=== PATIENT | female | born 2000 | race Caucasian/White ===

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

== ENCOUNTER 2019-10-06 07:38 | Inpatient (IN) | payer MEDICAID, OTHER ==
[~2019-10-06] VITALS: Ht 162.6 cm; Wt 93.1 kg
[2019-10-06 08:27] LABS: BASOPHILS % (AUTO) 0.3 % (0.0-2.0); EOSINOPHILS % (AUTO) 0.8 % (1.0-6.0); HEMATOCRIT 42.6 % (36-46); HEMOGLOBIN 14.3 g/dL (12.0-16.0); LYMPHOCYTES # (AUTO) 1.6 K/uL (1.0-4.8); MEAN CORPUSCULAR HEMOGLOBIN 28.2 pg (26.0-34.0); MEAN CORPUSCULAR HGB CONC 33.6 G/dL (31.0-37.0); MEAN CORPUSCULAR VOLUME 84 fL (80-100); MONOCYTES # (AUTO) 0.5 K/uL (0.1-1.0); MONOCYTES % (AUTO) 5.8 % (2.0-9.0); NEUTROPHILS # (AUTO) 7.1 K/uL (1.8-7.7); NEUTROPHILS % (AUTO) 76.1 % (40.0-70.0); PLATELET COUNT (AUTO) 263 K/uL (150-450); RED BLOOD CELL COUNT(AUTO) 5.07 MIL/uL (4.00-5.20); RED CELL DISTRIBUTION WIDTH 13.1 % (11.5-14.5)
[2019-10-06] MEDS ORDERED: HALOPERIDOL 5 MG TABLET PO PRN (08:30)
[2019-10-06] MEDS ORDERED: LORazepam 2 MG TABLET PO PRN (08:30)
[2019-10-06 08:46] LABS: ANION GAP 9 mmol/L (8-16); CALCIUM, TOTAL 8.7 mg/dL (8.8-10.5); CARBON DIOXIDE 25 mmol/L (22-29); CHLORIDE 107 mmol/L (98-107); CREATININE 0.76 mg/dL (0.60-1.30); GLOMERULAR FILTR. RATE CALC > 60 mL/min (>60); GLUCOSE,RANDOM 89 mg/dL (70-110); POTASSIUM 3.8 mmol/L (3.5-5.1); SODIUM SERUM 141 mmol/L (136-145)
[2019-10-06 08:50] LABS: ALANINE AMINOTRANSFERASE 16 U/L (12-78); ALBUMIN 3.4 g/dL (3.4-5.0); ALKALINE PHOSPHATASE 161 U/L (46-116); ASPARTATE AMINOTRANSFERASE 20 U/L (15-37); BILIRUBIN,TOTAL 0.3 mg/dL (0.1-1.0); HCG,QUANTITATIVE < 1 mIU/mL (0-6); TOTAL PROTEIN, SERUM 7.1 g/dL (6.4-8.2)
[2019-10-06 08:58] LABS: UREA NITROGEN, BLOOD 7 mg/dL (7-18)
[2019-10-06] MEDS ORDERED: PERTUSS(ACELL),DIPH,TET VAC/PF 0.5 ML VIAL IM ONE (09:15)
[2019-10-06] MEDS ORDERED: ACETAMINOPHEN 500 MG TABLET PO ONE (09:15)
[2019-10-06] MEDS ORDERED: LORazepam 1 MG TABLET PO ONE (09:15)
[2019-10-06 10:59] LABS: APPEARANCE,URINE CLEAR (CLEAR); BILIRUBIN,URINE NEGATIVE (NEGATIVE); GLUCOSE, URINE (UA) NEGATIVE (NEGATIVE); KETONES,URINE TRACE mg/dL (NEGATIVE); LEUKOCYTE ESTERASE ,URINE NEGATIVE (NEGATIVE); NITRATE,URINE NEGATIVE (NEGATIVE); PH,URINE 6.5 (5.0-8.0); PROTEIN,URINE POS 1+ (NEGATIVE)
[2019-10-06 11:04] LABS: OCCULT BLOOD,URINE SMALL (NEGATIVE)
[2019-10-06 11:05] LABS: AMPHET/METH SCREEN,URINE POSITIVE (NEGATIVE); BACTERIA,URINE None Seen /HPF (None Seen); BARBITURATE SCREEN, URINE NEGATIVE (NEGATIVE); BENZODIAZEPINES SCREEN,URINE NEGATIVE (NEGATIVE); CANNABINOID SCREEN,URINE NEGATIVE (NEGATIVE); COCAINE SCREEN,URINE NEGATIVE (NEGATIVE); METHADONE SCREEN, URINE NEGATIVE (NEGATIVE); OPIATE SCREEN,URINE NEGATIVE (NEGATIVE); SQUAMOUS EPITHELIAL CELL,UR Few /LPF (None Seen); WBC,URINE None Seen /HPF (0-5)
[2019-10-06 11:06] LABS: PHENCYCLIDINE SCREEN,URINE NEGATIVE (NEGATIVE)
[2019-10-06 21:13] VITALS: BP 111/68
[2019-10-07 06:07] VITALS: BP 113/52
[2019-10-07 08:06] LABS: CHOL/HDL RATIO 1.9 (3.9-5.7); FREE T4 (FREE THYROXINE) 1.01 ng/dL (0.76-1.46); THYROID STIMULATING HORMONE 1.15 uIU/mL (0.36-3.74)
[2019-10-07] MEDS ORDERED: MAG HYDROX/AL HYDROX/SIMETH ES 30 ML SUSPENSION UDCUP PO PRN (08:15)
[2019-10-07] MEDS ORDERED: PETROLATUM,WHITE 28 GM JELLY TP PRN (08:15)
[2019-10-07] MEDS ORDERED: DOCUSATE SODIUM 100 MG CAPSULE PO PRN (08:15)
[2019-10-07] MEDS ORDERED: IBUPROFEN 400 MG TABLET PO PRN (08:15)
[2019-10-07] MEDS ORDERED: CloNIDine HCL 0.1 MG TABLET PO PRN (08:15)
[2019-10-07] MEDS ORDERED: ACETAMINOPHEN 325 MG TABLET PO PRN (08:15)
[2019-10-07] MEDS ORDERED: GuaiFENesin/D-METHORPHAN [SUGAR-FREE] 200-20MG/10 ML SYRUP UDCUP PO PRN (08:15)
[2019-10-07] MEDS ORDERED: MAGNESIUM HYDROXIDE SUSPENSION 30 ML UDCUP PO PRN (08:15)
[2019-10-07] MEDS ORDERED: ALBUTEROL SULFATE HFA 90 MCG/PUFF 8 GM INHALER IH PRN (08:15)
[2019-10-07] MEDS ORDERED: ONDANSETRON HCL 4 MG TABLET PO PRN (08:15)
[2019-10-07] MEDS ORDERED: LOPERAMIDE HCL 2 MG CAPSULE PO PRN (08:15)
[2019-10-07] MEDS ORDERED: NICOTINE 14 MG/24 HOUR PATCH TD PRN (08:15)
[2019-10-07 08:19] VITALS: BP 106/65
[2019-10-07 08:41] VITALS: BP 106/60
[2019-10-07] MEDS: SULFAMETHOX/TRIMETH DS 800-160 MG/TABLET PO SCH ×2 (08:45→16:12)
[2019-10-07] MEDS: VENLAFAXINE HCL 75 MG ER CAPSULE PO SCH (11:45)
[2019-10-07 16:00] VITALS: BP 115/69
[2019-10-07] MEDS: CEPHALEXIN MONOHYDRATE 500 MG CAPSULE PO SCH (16:12)
[2019-10-07] MEDS: ZOLPIDEM TARTRATE 10 MG TABLET PO PRN (21:28)
[2019-10-08] MEDS: CEPHALEXIN MONOHYDRATE 500 MG CAPSULE PO SCH ×3 (00:35→16:05)
[2019-10-08 06:48] VITALS: BP 120/81
[2019-10-08 08:02] LABS: CHOL/HDL RATIO 2.1 (3.9-5.7); THYROID STIMULATING HORMONE 1.24 uIU/mL (0.36-3.74)
[2019-10-08] MEDS: SULFAMETHOX/TRIMETH DS 800-160 MG/TABLET PO SCH ×2 (09:01→16:05)
[2019-10-08] MEDS: VENLAFAXINE HCL 75 MG ER CAPSULE PO SCH (09:01)
[2019-10-08 12:53] VITALS: BP 117/65
[2019-10-08 19:06] VITALS: BP 115/59
[2019-10-08] MEDS: ZOLPIDEM TARTRATE 10 MG TABLET PO PRN (20:59)
[2019-10-09] MEDS: CEPHALEXIN MONOHYDRATE 500 MG CAPSULE PO SCH ×2 (00:27→09:45)
[2019-10-09 05:08] VITALS: BP 112/59
[2019-10-09 08:23] VITALS: BP 114/67
[2019-10-09] MEDS: VENLAFAXINE HCL 75 MG ER CAPSULE PO SCH (09:45)
[2019-10-09] MEDS: SULFAMETHOX/TRIMETH DS 800-160 MG/TABLET PO SCH (09:45)
[2019-10-09] MEDS ORDERED: VENL75CA55 PO (10:19)
[2019-10-09] MEDS ORDERED: CEPH500 PO (11:07)
[2019-10-09] MEDS ORDERED: SULF1TAB42 PO (11:08)
== END 2019-10-09 13:30 | disposition home or self-care (01) | DRG 751 ==
LOC: EMS 07:40 → B2S 14:10 → B3A 10-07 08:24
PROC: 3E0234Z Introduction of Serum, Toxoid and Vaccine into Muscle, Percutaneous Approach (ICD-10-PCS; principal; 2019-10-06)
DX: F33.2 Major depressive disorder, recurrent severe without psychotic features (principal); F15.10 Other stimulant abuse, uncomplicated; S61.512A Laceration without foreign body of left wrist, initial encounter; L03.114 Cellulitis of left upper limb; L03.113 Cellulitis of right upper limb; Z23 Encounter for immunization; S61.511A Laceration without foreign body of right wrist, initial encounter; X78.9XXA Intentional self-harm by unspecified sharp object, initial encounter; Y93.89 Activity, other specified; Y92.89 Other specified places as the place of occurrence of the external cause; Y99.8 Other external cause status; Z81.8 Family history of other mental and behavioral disorders; Z79.899 Other long term (current) drug therapy; Z91.5 Personal history of self-harm
CPT/HCPCS: 83036; 84436; 84439; 84443; 90715; G0480

== ENCOUNTER 2020-02-21 15:21 | Emergency (ER) | payer MEDICAID, OTHER ==
[~2020-02-21] VITALS: Ht 162.6 cm; Wt 98.7 kg
[~2020-02-21 15:21] MED LIST: CEPH500 PO; SULF1TAB42 PO; VENL75CA55 PO
[2020-02-21] MEDS ORDERED: IBUPROFEN 400 MG TABLET PO ONE (16:15)
[2020-02-21 18:29] VITALS: BP 108/82
== END 2020-02-21 18:30 | disposition home or self-care (01) ==
LOC: EMS 15:21
DX: S99.911A Unspecified injury of right ankle, initial encounter (principal); F31.9 Bipolar disorder, unspecified; F15.90 Other stimulant use, unspecified, uncomplicated; X50.9XXA Other and unspecified overexertion or strenuous movements or postures, initial encounter; Y93.89 Activity, other specified; Y92.89 Other specified places as the place of occurrence of the external cause; Y99.8 Other external cause status
CPT/HCPCS: 29515

== ENCOUNTER 2020-03-02 22:39 | Inpatient (IN) | payer MEDICAID, OTHER ==
[~2020-03-02] VITALS: Ht 165.1 cm; Wt 104.3 kg
[2020-03-02 23:52] LABS: EOSINOPHILS % (AUTO) 1.1 % (1.0-6.0); HEMOGLOBIN 13.2 g/dL (12.0-16.0); LYMPHOCYTES # (AUTO) 4.1 K/uL (1.0-4.8); LYMPHOCYTES % (AUTO) 39.4 % (22.0-44.0); MEAN CORPUSCULAR HEMOGLOBIN 27.5 pg (26.0-34.0); MEAN CORPUSCULAR HGB CONC 32.9 G/dL (31.0-37.0); MEAN CORPUSCULAR VOLUME 83 fL (80-100); MONOCYTES # (AUTO) 0.6 K/uL (0.1-1.0); MONOCYTES % (AUTO) 6.1 % (2.0-9.0); NEUTROPHILS # (AUTO) 5.5 K/uL (1.8-7.7); NEUTROPHILS % (AUTO) 52.4 % (40.0-70.0); PLATELET COUNT (AUTO) 241 K/uL (150-450); RED CELL DISTRIBUTION WIDTH 13.3 % (11.5-14.5)
[2020-03-03 00:04] LABS: ANION GAP 7 mmol/L (8-16); CALCIUM, TOTAL 8.8 mg/dL (8.8-10.5); CARBON DIOXIDE 25 mmol/L (22-29); CHLORIDE 105 mmol/L (98-107); CREATININE 0.86 mg/dL (0.60-1.30); GLOMERULAR FILTR. RATE CALC > 60 mL/min (>60); GLUCOSE,RANDOM 120 mg/dL (70-110); POTASSIUM 3.6 mmol/L (3.5-5.1); SODIUM SERUM 137 mmol/L (136-145); UREA NITROGEN, BLOOD 17 mg/dL (7-18)
[2020-03-03 00:10] LABS: AMPHET/METH SCREEN,URINE POSITIVE (NEGATIVE); BARBITURATE SCREEN, URINE NEGATIVE (NEGATIVE); BENZODIAZEPINES SCREEN,URINE NEGATIVE (NEGATIVE); CANNABINOID SCREEN,URINE NEGATIVE (NEGATIVE); COCAINE SCREEN,URINE NEGATIVE (NEGATIVE); METHADONE SCREEN, URINE NEGATIVE (NEGATIVE); OPIATE SCREEN,URINE NEGATIVE (NEGATIVE); PHENCYCLIDINE SCREEN,URINE NEGATIVE (NEGATIVE)
[2020-03-03 00:15] LABS: ALANINE AMINOTRANSFERASE 26 U/L (12-78); ALBUMIN 3.3 g/dL (3.4-5.0); ALKALINE PHOSPHATASE 168 U/L (46-116); ASPARTATE AMINOTRANSFERASE 13 U/L (15-37); BILIRUBIN,TOTAL 0.2 mg/dL (0.1-1.0); HCG,QUANTITATIVE < 1 mIU/mL (0-6); TOTAL PROTEIN, SERUM 6.8 g/dL (6.4-8.2)
[2020-03-03] MEDS ORDERED: PERTUSS(ACELL),DIPH,TET VAC/PF 0.5 ML VIAL IM ONE (00:30)
[2020-03-03] MEDS ORDERED: LORazepam 2 MG TABLET PO PRN (00:45)
[2020-03-03] MEDS ORDERED: HALOPERIDOL 5 MG TABLET PO PRN (00:45)
[2020-03-03 01:17] LABS: ACETAMINOPHEN < 2 mcg/mL (10-30); SALICYLATE 1.2 mg/dL (2.8-20.0)
[2020-03-03 06:37] VITALS: BP 123/75
[2020-03-03 08:10] VITALS: BP 113/70
[2020-03-03] MEDS: BACITRACIN 28.4 GM OINTMENT TP SCH (09:32)
[2020-03-03] MEDS: BuPROPion HCL XL 150 MG ER TABLET PO SCH (12:08)
[2020-03-03 17:00] VITALS: BP 93/40
[2020-03-03] MEDS: ZOLPIDEM TARTRATE 10 MG TABLET PO PRN (20:20)
[2020-03-04 05:19] VITALS: BP 125/57
[2020-03-04 08:00] VITALS: BP 124/74
[2020-03-04 08:22] LABS: CHOL/HDL RATIO 2.2 (3.9-5.7)
[2020-03-04] MEDS: BACITRACIN 28.4 GM OINTMENT TP SCH (09:00)
[2020-03-04] MEDS: BuPROPion HCL XL 150 MG ER TABLET PO SCH (09:00)
[2020-03-04 16:42] VITALS: BP 113/64
[2020-03-04] MEDS: ZOLPIDEM TARTRATE 10 MG TABLET PO PRN (21:07)
[2020-03-05 04:02] VITALS: BP 101/68
[2020-03-05 08:22] VITALS: BP 108/55
[2020-03-05] MEDS: BuPROPion HCL XL 150 MG ER TABLET PO SCH (08:38)
[2020-03-05] MEDS: BACITRACIN 28.4 GM OINTMENT TP SCH (08:38)
[2020-03-05] MEDS ORDERED: BUPR-93 PO (15:43)
[2020-03-05 16:36] VITALS: BP 110/70
== END 2020-03-05 18:20 | disposition home or self-care (01) | DRG 751 ==
LOC: EMS 22:40 → B3A 03-03 03:30
PROVIDERS: ADMIT Psychiatry & Neurology Psychiatry; ATTEND Psychiatry & Neurology Psychiatry
DX: F33.2 Major depressive disorder, recurrent severe without psychotic features (principal); R45.851 Suicidal ideations; F10.10 Alcohol abuse, uncomplicated; S51.811A Laceration without foreign body of right forearm, initial encounter; X78.8XXA Intentional self-harm by other sharp object, initial encounter; F19.10 Other psychoactive substance abuse, uncomplicated; R00.0 Tachycardia, unspecified; R73.9 Hyperglycemia, unspecified; Y93.89 Activity, other specified; Y92.89 Other specified places as the place of occurrence of the external cause; Y99.8 Other external cause status; Z79.899 Other long term (current) drug therapy
CPT/HCPCS: G0480; G0481

== ENCOUNTER 2020-07-09 03:04 | Inpatient (IN) | payer MEDICAID, OTHER ==
[~2020-07-09] VITALS: Ht 165.1 cm; Wt 102.2 kg
[~2020-07-09 03:04] MED LIST changes: +BUPR-93 PO; -CEPH500 PO; -SULF1TAB42 PO; -VENL75CA55 PO
[2020-07-09 04:32] LABS: COVID AG,FIA SOURCE NASOPHARYNGEAL
[2020-07-09 04:51] LABS: BASOPHILS % (AUTO) 0.1 % (0.0-2.0); EOSINOPHILS % (AUTO) 0.6 % (1.0-6.0); HEMOGLOBIN 12.7 g/dL (12.0-16.0); LYMPHOCYTES # (AUTO) 1.9 K/uL (1.0-4.8); LYMPHOCYTES % (AUTO) 21.5 % (22.0-44.0); MEAN CORPUSCULAR HEMOGLOBIN 27.6 pg (26.0-34.0); MEAN CORPUSCULAR HGB CONC 33.4 G/dL (31.0-37.0); MEAN CORPUSCULAR VOLUME 83 fL (80-100); MONOCYTES # (AUTO) 0.7 K/uL (0.1-1.0); MONOCYTES % (AUTO) 7.3 % (2.0-9.0); NEUTROPHILS # (AUTO) 6.3 K/uL (1.8-7.7); NEUTROPHILS % (AUTO) 70.5 % (40.0-70.0); PLATELET COUNT (AUTO) 232 K/uL (150-450); RED CELL DISTRIBUTION WIDTH 13.6 % (11.5-14.5)
[2020-07-09 04:53] LABS: ANION GAP 6 mmol/L (8-16); CALCIUM, TOTAL 8.9 mg/dL (8.8-10.5); CARBON DIOXIDE 25 mmol/L (22-29); CHLORIDE 107 mmol/L (98-107); CREATININE 0.92 mg/dL (0.60-1.30); GLOMERULAR FILTR. RATE CALC > 60 mL/min (>60); GLUCOSE,RANDOM 141 mg/dL (70-110); POTASSIUM 3.7 mmol/L (3.5-5.1); SODIUM SERUM 138 mmol/L (136-145); UREA NITROGEN, BLOOD 13 mg/dL (7-18)
[2020-07-09 05:05] LABS: ALANINE AMINOTRANSFERASE 21 U/L (12-78); ALBUMIN 2.7 g/dL (3.4-5.0); ALKALINE PHOSPHATASE 123 U/L (46-116); ASPARTATE AMINOTRANSFERASE 13 U/L (15-37); BILIRUBIN,TOTAL 0.2 mg/dL (0.1-1.0); HCG,QUANTITATIVE < 1 mIU/mL (0-6)
[2020-07-09] MEDS ORDERED: ZOLPIDEM TARTRATE 10 MG TABLET PO PRN (05:15)
[2020-07-09] MEDS ORDERED: QUEtiapine FUMARATE 100 MG TABLET PO PRN (05:15)
[2020-07-09 06:36] LABS: APPEARANCE,URINE CLOUDY (CLEAR); BILIRUBIN,URINE NEGATIVE (NEGATIVE); GLUCOSE, URINE (UA) NEGATIVE (NEGATIVE); KETONES,URINE NEGATIVE (NEGATIVE); NITRATE,URINE POSITIVE (NEGATIVE); PH,URINE 5.5 (5.0-8.0); PROTEIN,URINE NEGATIVE (NEGATIVE); UROBILINOGEN,URINE 0.2 mg/dL (<=1.0)
[2020-07-09 06:40] LABS: AMPHET/METH SCREEN,URINE POSITIVE (NEGATIVE); BARBITURATE SCREEN, URINE NEGATIVE (NEGATIVE); BENZODIAZEPINES SCREEN,URINE NEGATIVE (NEGATIVE); CANNABINOID SCREEN,URINE POSITIVE (NEGATIVE); COCAINE SCREEN,URINE NEGATIVE (NEGATIVE); METHADONE SCREEN, URINE NEGATIVE (NEGATIVE); OPIATE SCREEN,URINE NEGATIVE (NEGATIVE); PHENCYCLIDINE SCREEN,URINE NEGATIVE (NEGATIVE)
[2020-07-09 07:12] LABS: LEUKOCYTE ESTERASE ,URINE MODERATE (NEGATIVE); OCCULT BLOOD,URINE TRACE (NEGATIVE); RBC,URINE 0-2 /HPF (0-2)
[2020-07-09 07:13] LABS: BACTERIA,URINE Many /HPF (None Seen); SQUAMOUS EPITHELIAL CELL,UR Few /LPF (None Seen)
[2020-07-09] MEDS ORDERED: LOPERAMIDE HCL 2 MG CAPSULE PO PRN (10:30)
[2020-07-09] MEDS ORDERED: PROMETHAZINE HCL 25 MG TABLET PO PRN (10:30)
[2020-07-09] MEDS ORDERED: MAG HYDROX/AL HYDROX/SIMETH ES 30 ML SUSPENSION UDCUP PO PRN (10:30)
[2020-07-09] MEDS ORDERED: GuaiFENesin/D-METHORPHAN [SUGAR-FREE] 200-20MG/10 ML SYRUP UDCUP PO PRN (10:30)
[2020-07-09] MEDS ORDERED: TUBERCULIN, PURIFIED PROTEIN DERIVATIVE 5 TU/0.1 ML SYRINGE ID ONE (10:30)
[2020-07-09] MEDS ORDERED: MAGNESIUM HYDROXIDE SUSPENSION 30 ML UDCUP PO PRN (10:30)
[2020-07-09] MEDS ORDERED: ACETAMINOPHEN 325 MG TABLET PO PRN (10:30)
[2020-07-09] MEDS ORDERED: HydrOXYzine PAMOATE 50 MG CAPSULE PO PRN (10:30)
[2020-07-09] MEDS: LORazepam 2 MG TABLET PO PRN (13:22)
[2020-07-09 15:12] VITALS: BP 105/62
[2020-07-09] MEDS ORDERED: OLANZapine 5 MG RAPDIS TABLET PO PRN (16:15)
[2020-07-09 16:22] VITALS: BP 113/62
[2020-07-09] MEDS: THIAMINE 100 MG TABLET PO SCH (16:50)
[2020-07-09] MEDS: NITROFURANTOIN/NITROFURAN MAC 100 MG CAPSULE [MACROBID] PO SCH (16:50)
[2020-07-09] MEDS ORDERED: OLANZapine 5 MG RAPDIS TABLET PO SCH (21:00)
[2020-07-10 01:21] VITALS: BP 107/65
[2020-07-10 08:12] LABS: HEMOGLOBIN A1C 5.3 % (3.8-5.6)
[2020-07-10] MEDS: THIAMINE 100 MG TABLET PO SCH ×2 (08:19→16:38)
[2020-07-10] MEDS: OMEGA-3/DHA/EPA/FISH OIL 1,000 MG CAPSULE PO SCH (08:19)
[2020-07-10] MEDS: NALTREXONE HCL 50 MG TABLET PO SCH (08:19)
[2020-07-10 08:20] LABS: CHOL/HDL RATIO 2.5 (3.9-5.7); FREE T4 (FREE THYROXINE) 1.08 ng/dL (0.76-1.46); THYROID STIMULATING HORMONE 1.01 uIU/mL (0.36-3.74)
[2020-07-10] MEDS: FOLIC ACID 1 MG TABLET PO SCH (08:20)
[2020-07-10] MEDS: NITROFURANTOIN/NITROFURAN MAC 100 MG CAPSULE [MACROBID] PO SCH ×2 (08:21→16:38)
[2020-07-10 08:27] VITALS: BP 102/58
[2020-07-10] MEDS: MULTIVITAMINS WITH MINERALS, THERAPEUTIC TABLET PO SCH (08:41)
[2020-07-10] MEDS ORDERED: FLUoxetine HCL 20 MG CAPSULE PO SCH (09:00)
[2020-07-10 12:30] VITALS: BP 114/74
[2020-07-10] MEDS: LORazepam 2 MG TABLET PO PRN ×2 (12:49→17:21)
[2020-07-10] MEDS ORDERED: OLAN10TA22 PO (15:01)
[2020-07-10] MEDS ORDERED: NALT50TA PO (15:01)
[2020-07-10] MEDS ORDERED: FLUO-191 PO (15:01)
[2020-07-10] MEDS ORDERED: OMEG-135 PO (15:01)
[2020-07-10 16:12] VITALS: BP 109/60
[2020-07-10] MEDS ORDERED: OLANZapine 10 MG RAPDIS TABLET PO SCH (21:00)
[2020-07-11 01:17] VITALS: BP 104/66
[2020-07-11] MEDS ORDERED: MACR100 PO (08:06)
[2020-07-11 08:30] VITALS: BP 116/74
[2020-07-11] MEDS: NITROFURANTOIN/NITROFURAN MAC 100 MG CAPSULE [MACROBID] PO SCH (08:37)
[2020-07-11] MEDS: OMEGA-3/DHA/EPA/FISH OIL 1,000 MG CAPSULE PO SCH (08:37)
[2020-07-11] MEDS: FOLIC ACID 1 MG TABLET PO SCH (08:37)
[2020-07-11] MEDS: MULTIVITAMINS WITH MINERALS, THERAPEUTIC TABLET PO SCH (08:37)
[2020-07-11] MEDS: NALTREXONE HCL 50 MG TABLET PO SCH (08:38)
[2020-07-11] MEDS: THIAMINE 100 MG TABLET PO SCH (08:38)
[2020-07-11] MEDS ORDERED: FLUoxetine HCL 20 MG CAPSULE PO SCH (09:00)
== END 2020-07-11 13:25 | disposition home or self-care (01) | DRG 750 ==
LOC: EMS 03:04 → B3A 10:00
PROVIDERS: ADMIT Psychiatry & Neurology Psychiatry; ATTEND Psychiatry & Neurology Psychiatry
DX: F25.9 Schizoaffective disorder, unspecified (principal); E46 Unspecified protein-calorie malnutrition; F12.90 Cannabis use, unspecified, uncomplicated; F15.10 Other stimulant abuse, uncomplicated; F31.9 Bipolar disorder, unspecified; N39.0 Urinary tract infection, site not specified; S61.511A Laceration without foreign body of right wrist, initial encounter; S61.512A Laceration without foreign body of left wrist, initial encounter; X78.9XXA Intentional self-harm by unspecified sharp object, initial encounter; F17.210 Nicotine dependence, cigarettes, uncomplicated; Y93.89 Activity, other specified; Y92.89 Other specified places as the place of occurrence of the external cause; Y99.8 Other external cause status; Z55.9 Problems related to education and literacy, unspecified; Z59.9 Problem related to housing and economic circumstances, unspecified; Z65.3 Problems related to other legal circumstances; Z81.8 Family history of other mental and behavioral disorders; Z68.37 Body mass index [BMI] 37.0-37.9, adult
CPT/HCPCS: 83036; 84439; 84443; 86592; 87086; 87426; G0480

== ENCOUNTER 2020-07-24 03:17 | Emergency (ER) | payer MEDICAID, OTHER ==
[~2020-07-24] VITALS: Ht 162.6 cm; Wt 95.5 kg
[~2020-07-24 03:17] MED LIST changes: -BUPR-93 PO; +FLUO-191 PO; +MACR100 PO; +NALT50TA PO; +OLAN10TA22 PO; +OMEG-135 PO
[2020-07-24] MEDS ORDERED: LORazepam 1 MG TABLET PO ONE (03:45)
[2020-07-24 09:15] VITALS: BP 128/65
[2020-07-25] MEDS ORDERED: OLAN10TA3 PO (14:50)
[2020-07-25] MEDS ORDERED: MIRT-89 PO (14:50)
== END 2020-07-24 09:18 | disposition home or self-care (01) ==
LOC: EMS 03:17
DX: F32.9 Major depressive disorder, single episode, unspecified (principal); F15.10 Other stimulant abuse, uncomplicated; Z79.899 Other long term (current) drug therapy
CPT/HCPCS: Z7502; Z7610

== ENCOUNTER 2020-07-25 14:15 | Inpatient (IN) | payer MEDICAID, OTHER ==
[~2020-07-25] VITALS: Ht 162.6 cm; Wt 95.7 kg
[~2020-07-25 14:15] MED LIST changes: -OLAN10TA22 PO; -OMEG-135 PO
[2020-07-25] MEDS ORDERED: OLAN10TA3 PO (14:50)
[2020-07-25] MEDS ORDERED: MIRT-89 PO (14:50)
[2020-07-25 14:55] LABS: BASOPHILS % (AUTO) 0.5 % (0.0-2.0); EOSINOPHILS % (AUTO) 3.2 % (1.0-6.0); HEMATOCRIT 42.1 % (36-46); HEMOGLOBIN 14.2 g/dL (12.0-16.0); LYMPHOCYTES # (AUTO) 2.2 K/uL (1.0-4.8); LYMPHOCYTES % (AUTO) 27.1 % (22.0-44.0); MEAN CORPUSCULAR HEMOGLOBIN 28.2 pg (26.0-34.0); MEAN CORPUSCULAR HGB CONC 33.6 G/dL (31.0-37.0); MEAN CORPUSCULAR VOLUME 84 fL (80-100); MONOCYTES # (AUTO) 0.7 K/uL (0.1-1.0); MONOCYTES % (AUTO) 9.2 % (2.0-9.0); NEUTROPHILS # (AUTO) 4.9 K/uL (1.8-7.7); PLATELET COUNT (AUTO) 243 K/uL (150-450); RED BLOOD CELL COUNT(AUTO) 5.02 MIL/uL (4.00-5.20); RED CELL DISTRIBUTION WIDTH 13.9 % (11.5-14.5)
[2020-07-25] MEDS ORDERED: SODIUM CHLORIDE 0.9% 1,000 ML IV ONE (15:00)
[2020-07-25 15:05] LABS: ANION GAP 9 mmol/L (8-16); CALCIUM, TOTAL 8.8 mg/dL (8.8-10.5); CARBON DIOXIDE 27 mmol/L (22-29); CHLORIDE 108 mmol/L (98-107); GLOMERULAR FILTR. RATE CALC > 60 mL/min (>60); GLUCOSE,RANDOM 119 mg/dL (70-110); POTASSIUM 3.5 mmol/L (3.5-5.1); SODIUM SERUM 144 mmol/L (136-145); UREA NITROGEN, BLOOD 8 mg/dL (7-18)
[2020-07-25 15:17] LABS: SALICYLATE 0.9 mg/dL (2.8-20.0)
[2020-07-25 15:18] LABS: ALANINE AMINOTRANSFERASE 23 U/L (12-78); ALBUMIN 3.1 g/dL (3.4-5.0); ALKALINE PHOSPHATASE 130 U/L (46-116); ASPARTATE AMINOTRANSFERASE 15 U/L (15-37); BILIRUBIN,TOTAL 0.3 mg/dL (0.1-1.0); HCG,QUANTITATIVE 1 mIU/mL (0-6); TOTAL PROTEIN, SERUM 6.5 g/dL (6.4-8.2)
[2020-07-25 15:22] LABS: ACETAMINOPHEN < 2 mcg/mL (10-30)
[2020-07-25 16:55] LABS: COVID AG,FIA SOURCE NASOPHARYNGEAL
[2020-07-25] MEDS ORDERED: LOPERAMIDE HCL 2 MG CAPSULE PO PRN (20:30)
[2020-07-25] MEDS ORDERED: PROMETHAZINE HCL 25 MG TABLET PO PRN ×2 (20:30)
[2020-07-25] MEDS ORDERED: ACETAMINOPHEN 325 MG TABLET PO PRN (20:30)
[2020-07-25] MEDS ORDERED: MAG HYDROX/AL HYDROX/SIMETH ES 30 ML SUSPENSION UDCUP PO PRN (20:30)
[2020-07-25] MEDS ORDERED: LORazepam 2 MG TABLET PO PRN (20:30)
[2020-07-25] MEDS ORDERED: HydrOXYzine PAMOATE 50 MG CAPSULE PO PRN (20:30)
[2020-07-25] MEDS ORDERED: ZOLPIDEM TARTRATE 10 MG TABLET PO PRN (20:30)
[2020-07-25] MEDS ORDERED: OLANZapine 5 MG RAPDIS TABLET PO PRN (20:30)
[2020-07-25] MEDS ORDERED: MAGNESIUM HYDROXIDE SUSPENSION 30 ML UDCUP PO PRN (20:30)
[2020-07-25] MEDS ORDERED: OLANZapine 5 MG RAPDIS TABLET PO SCH (21:00)
[2020-07-25] MEDS: THIAMINE 100 MG TABLET PO SCH (21:00)
[2020-07-26] MEDS ORDERED: INFLUENZA VIRUS VACCINE QVS 2020-21 (6MO+)/PF 60 MCG/0.5 ML SYRINGE IM ONE ×2 (00:45→03:45)
[2020-07-26 08:00] VITALS: BP 131/79
[2020-07-26] MEDS ORDERED: DOCUSATE SODIUM 100 MG CAPSULE PO PRN (08:00)
[2020-07-26] MEDS ORDERED: GuaiFENesin/D-METHORPHAN [SUGAR-FREE] 200-20MG/10 ML SYRUP UDCUP PO PRN (08:00)
[2020-07-26] MEDS ORDERED: MAG HYDROX/AL HYDROX/SIMETH ES 30 ML SUSPENSION UDCUP PO PRN (08:00)
[2020-07-26] MEDS ORDERED: CloNIDine HCL 0.1 MG TABLET PO PRN (08:00)
[2020-07-26] MEDS ORDERED: PETROLATUM,WHITE 28 GM JELLY TP PRN (08:00)
[2020-07-26] MEDS ORDERED: LOPERAMIDE HCL 2 MG CAPSULE PO PRN (08:00)
[2020-07-26] MEDS ORDERED: NICOTINE 14 MG/24 HOUR PATCH TD PRN (08:00)
[2020-07-26] MEDS ORDERED: IBUPROFEN 400 MG TABLET PO PRN (08:00)
[2020-07-26] MEDS ORDERED: ALBUTEROL SULFATE HFA 90 MCG/PUFF 8 GM INHALER IH PRN (08:00)
[2020-07-26] MEDS ORDERED: ONDANSETRON HCL 4 MG TABLET PO PRN (08:00)
[2020-07-26] MEDS: FLUoxetine HCL 20 MG CAPSULE PO SCH (08:52)
[2020-07-26] MEDS: FOLIC ACID 1 MG TABLET PO SCH (08:52)
[2020-07-26] MEDS: MULTIVITAMINS WITH MINERALS, THERAPEUTIC TABLET PO SCH (08:52)
[2020-07-26] MEDS: THIAMINE 100 MG TABLET PO SCH ×2 (08:52→16:43)
[2020-07-26] MEDS: OMEGA-3/DHA/EPA/FISH OIL 1,000 MG CAPSULE PO SCH (08:53)
[2020-07-26] MEDS: NALTREXONE HCL 50 MG TABLET PO SCH (08:53)
[2020-07-26 18:11] VITALS: BP 115/79
[2020-07-26 19:00] VITALS: BP 127/82
[2020-07-27 00:01] VITALS: BP 130/81
[2020-07-27] MEDS: FOLIC ACID 1 MG TABLET PO SCH (08:59)
[2020-07-27] MEDS: MULTIVITAMINS WITH MINERALS, THERAPEUTIC TABLET PO SCH (08:59)
[2020-07-27] MEDS: FLUoxetine HCL 20 MG CAPSULE PO SCH (08:59)
[2020-07-27] MEDS: NALTREXONE HCL 50 MG TABLET PO SCH (08:59)
[2020-07-27] MEDS: OMEGA-3/DHA/EPA/FISH OIL 1,000 MG CAPSULE PO SCH (08:59)
[2020-07-27] MEDS: THIAMINE 100 MG TABLET PO SCH ×2 (09:00→17:00)
[2020-07-27 16:00] VITALS: BP 111/69
[2020-07-27 20:57] VITALS: BP 109/76
[2020-07-28 08:00] VITALS: BP 110/53
[2020-07-28] MEDS: FLUoxetine HCL 20 MG CAPSULE PO SCH (09:50)
[2020-07-28] MEDS: MULTIVITAMINS WITH MINERALS, THERAPEUTIC TABLET PO SCH (09:50)
[2020-07-28] MEDS: OMEGA-3/DHA/EPA/FISH OIL 1,000 MG CAPSULE PO SCH (09:50)
[2020-07-28] MEDS: THIAMINE 100 MG TABLET PO SCH ×2 (09:50→20:32)
[2020-07-28] MEDS: NALTREXONE HCL 50 MG TABLET PO SCH (09:51)
[2020-07-28] MEDS: FOLIC ACID 1 MG TABLET PO SCH (09:51)
[2020-07-28 17:09] VITALS: BP 93/62
[2020-07-28 20:33] VITALS: BP 109/73
[2020-07-29] MEDS: NALTREXONE HCL 50 MG TABLET PO SCH (08:57)
[2020-07-29] MEDS: MULTIVITAMINS WITH MINERALS, THERAPEUTIC TABLET PO SCH (08:57)
[2020-07-29] MEDS: FLUoxetine HCL 20 MG CAPSULE PO SCH (08:57)
[2020-07-29] MEDS: OMEGA-3/DHA/EPA/FISH OIL 1,000 MG CAPSULE PO SCH (08:57)
[2020-07-29] MEDS: THIAMINE 100 MG TABLET PO SCH ×2 (08:57→16:10)
[2020-07-29] MEDS: FOLIC ACID 1 MG TABLET PO SCH (08:57)
[2020-07-29] MEDS ORDERED: PALIPERIDONE PALMITATE 234 MG/1.5 ML SYRINGE IM ONE (10:00)
[2020-07-29 16:00] VITALS: BP 96/63
[2020-07-30] MEDS: MULTIVITAMINS WITH MINERALS, THERAPEUTIC TABLET PO SCH (08:32)
[2020-07-30] MEDS: NALTREXONE HCL 50 MG TABLET PO SCH (08:32)
[2020-07-30] MEDS: FLUoxetine HCL 20 MG CAPSULE PO SCH (08:32)
[2020-07-30] MEDS: THIAMINE 100 MG TABLET PO SCH ×2 (08:32→16:14)
[2020-07-30] MEDS: OMEGA-3/DHA/EPA/FISH OIL 1,000 MG CAPSULE PO SCH (08:32)
[2020-07-30] MEDS: FOLIC ACID 1 MG TABLET PO SCH (08:32)
[2020-07-30 08:39] VITALS: BP 110/64
[2020-07-30 16:54] VITALS: BP 95/61
[2020-07-31] MEDS: THIAMINE 100 MG TABLET PO SCH ×2 (09:19→16:21)
[2020-07-31] MEDS: NALTREXONE HCL 50 MG TABLET PO SCH (09:19)
[2020-07-31] MEDS: FOLIC ACID 1 MG TABLET PO SCH (09:19)
[2020-07-31] MEDS: OMEGA-3/DHA/EPA/FISH OIL 1,000 MG CAPSULE PO SCH (09:19)
[2020-07-31] MEDS: MULTIVITAMINS WITH MINERALS, THERAPEUTIC TABLET PO SCH (09:22)
[2020-07-31] MEDS: FLUoxetine HCL 20 MG CAPSULE PO SCH (09:22)
[2020-07-31 11:33] VITALS: BP 110/76
[2020-07-31 17:13] VITALS: BP 133/60
[2020-08-01 08:00] VITALS: BP 117/71
[2020-08-01] MEDS: OMEGA-3/DHA/EPA/FISH OIL 1,000 MG CAPSULE PO SCH (08:17)
[2020-08-01] MEDS: THIAMINE 100 MG TABLET PO SCH ×2 (08:17→16:23)
[2020-08-01] MEDS: NALTREXONE HCL 50 MG TABLET PO SCH (08:17)
[2020-08-01] MEDS: FOLIC ACID 1 MG TABLET PO SCH (08:17)
[2020-08-01] MEDS: FLUoxetine HCL 20 MG CAPSULE PO SCH (08:17)
[2020-08-01] MEDS: MULTIVITAMINS WITH MINERALS, THERAPEUTIC TABLET PO SCH (08:17)
[2020-08-01 16:29] VITALS: BP 100/60
[2020-08-02] MEDS: OMEGA-3/DHA/EPA/FISH OIL 1,000 MG CAPSULE PO SCH (07:59)
[2020-08-02] MEDS: NALTREXONE HCL 50 MG TABLET PO SCH (07:59)
[2020-08-02] MEDS: MULTIVITAMINS WITH MINERALS, THERAPEUTIC TABLET PO SCH (07:59)
[2020-08-02] MEDS: FOLIC ACID 1 MG TABLET PO SCH (07:59)
[2020-08-02 08:00] VITALS: BP 119/70
[2020-08-02] MEDS: FLUoxetine HCL 20 MG CAPSULE PO SCH (08:01)
[2020-08-02] MEDS: THIAMINE 100 MG TABLET PO SCH (08:44)
[2020-08-02] MEDS ORDERED: PALIPERIDONE PALMITATE 156 MG/ML SYRINGE IM ONE (09:00)
[2020-08-02] MEDS ORDERED: FLUO-191 PO (11:36)
[2020-08-02] MEDS ORDERED: PALI117D IM (11:36)
[2020-08-02] MEDS ORDERED: NALT50TA PO (11:36)
[2020-08-02] MEDS ORDERED: OMEG-135 PO (11:36)
== END 2020-08-02 15:43 | disposition home or self-care (01) | DRG 751 ==
LOC: EMS 14:43 → 3EC 20:20
PROVIDERS: ADMIT Psychiatry & Neurology Psychiatry; ATTEND Psychiatry & Neurology Psychiatry
DX: F33.3 Major depressive disorder, recurrent, severe with psychotic symptoms (principal); F10.10 Alcohol abuse, uncomplicated; K21.9 Gastro-esophageal reflux disease without esophagitis; F17.210 Nicotine dependence, cigarettes, uncomplicated; F41.9 Anxiety disorder, unspecified; R47.81 Slurred speech; R73.9 Hyperglycemia, unspecified; Z23 Encounter for immunization; Z79.899 Other long term (current) drug therapy; Z71.41 Alcohol abuse counseling and surveillance of alcoholic
CPT/HCPCS: 70450; 70551; 87081; 87426; 90686; 93005; 99291; G0480; G0481; J7030

== ENCOUNTER 2020-11-26 23:18 | Emergency (ER) | payer MEDICAID, OTHER ==
[~2020-11-26] VITALS: Ht 165.1 cm; Wt 97.3 kg
[~2020-11-26 23:18] MED LIST changes: -MACR100 PO; +OMEG-135 PO; +PALI117D IM
[2020-11-27 02:00] VITALS: BP 112/78
== END 2020-11-27 02:53 | disposition home or self-care (01) ==
LOC: EMS 23:22
DX: A51.49 Other secondary syphilitic conditions (principal); F31.9 Bipolar disorder, unspecified; F19.90 Other psychoactive substance use, unspecified, uncomplicated
CPT/HCPCS: 99281; 99282; 99283